=== PATIENT | female | born 1980 ===

== ENCOUNTER 2018-05-15 09:41 | Emergency (ER) | payer OTHER ==
[2018-05-15 09:46] VITALS: RESP 18
--- NOTE | 2018-05-15 12:05 | ED PDOC ---
History of Present Illness History of Present Illness: 38yo female, otherwise well, comes to ER reporting cough and congestion x 4 day. She reports associated chest pain due to the persistent coughing; patient reports diffuse bodyaches as well. Patient denies associated shortness of breath, abdominal pain, vomiting and diarrhea. Patient took Tylenol yesterday, with no relief of symptoms. PMD: None HPI: Influenza Time Seen by Provider: 05/15/18 10:02 Chief Complaint: Cough, Cold, Congestion Chief Complaint (Provider): Flu like symptoms History Per: Patient Exam Limitations: no limitations Onset/Duration Of Symptoms: Days (4) Symptoms include: bodyaches, cough, nasal congestion. denies: vomiting, diarrhea, chest pain Past Medical History Reviewed: Historical Data, Nursing Documentation, Vital Signs Vital Signs: Last Vital Signs Temp 98.3 F 05/15/18 09:44 Pulse 74 05/15/18 09:44 Resp 18 05/15/18 09:44 BP 132/90 05/15/18 09:44 Pulse Ox 100 05/15/18 09:44 - Medical History PMH: No Chronic Diseases - Surgical History Surgical History: No Surg Hx - Home Medications Home Medications: Ambulatory Orders Medication Instructions Recorded Benzonatate [Tessalon Perles] 100 mg PO BID PRN 5 Days sgl 05/15/18 Ibuprofen [Motrin] 600 mg PO TID 7 Days tab 05/15/18 - Allergies Allergies/Adverse Reactions: Allergies Allergy/AdvReac Type Severity Reaction Status Date / Time No Known Allergies Allergy Verified 05/15/18 10:05 Review of Systems ROS Statement: Except As Marked, All Systems Reviewed And Found Negative Constitutional: Positive for: Fever, Malaise Cardiovascular: Positive for: Chest Pain (s/p cough) Respiratory: Positive for: Cough. Negative for: Shortness of Breath Gastrointestinal: Negative for: Nausea, Vomiting, Abdominal Pain Physical Exam - Reviewed Nursing Documentation Reviewed: Yes Vital Signs Reviewed: Yes - Physical Exam Appears: Positive for: Non-toxic, No Acute Distress Head Exam: Positive for: ATRAUMATIC, NORMAL INSPECTION, NORMOCEPHALIC Skin: Positive for: Normal Color, Warm Eye Exam: Positive for: EOMI, PERRL ENT: Positive for: Nasal Congestion. Negative for: Pharyngeal Erythema, Tonsillar Exudate, Tonsillar Swelling Neck: Positive for: Normal, Painless ROM, Supple Cardiovascular/Chest: Positive for: Regular Rate, Rhythm. Negative for: Murmur, Tachycardia Respiratory: Positive for: Normal Breath Sounds. Negative for: Rales, Rhonchi, Wheezing Pulses-Radial (L): 2+ Pulses-Radial (R): 2+ Gastrointestinal/Abdominal: Positive for: Normal Exam, Soft. Negative for: Tenderness Back: Positive for: Normal Inspection. Negative for: L CVA Tenderness, R CVA Tenderness Extremity: Positive for: Normal ROM. Negative for: Pedal Edema Neurologic/Psych: Positive for: Alert, Oriented. Negative for: Motor/Sensory Deficits Medical Decision Making Medical Decision Making: Impression: Flu like illness Plan: -- Tessalon perles -- Motrin 600mg PO Scribe Attestation: Documented by Deisi Croft acting as a scribe for Elder Holloway MD Provider Attestation: All medical record entries made by the Scribe were at my direction and personally dictated by me. I have reviewed the chart and agree that the record accurately reflects my personal performance of the history, physical exam, medical decision making, and the department course for this patient. I have also personally directed, reviewed, and agree with the discharge instructions and disposition. - ECG O2 Sat by Pulse Oximetry: 100 Disposition - Clinical Impression Clinical Impression: URI (upper respiratory infection) - Disposition Referrals: [facility] [Outside] - 05/19/18 Condition: STABLE Additional Instructions: Return if not better in 3 days. Prescriptions: Benzonatate [Tessalon Perles] 100 mg PO BID PRN 5 Days sgl PRN Reason: Cough Ibuprofen [Motrin] 600 mg PO TID 7 Days tab Instructions: Viral Upper Respiratory Infection, Adult (DC) Forms: [facility] ED School/Work Excuse Print Language: ARABIC
[2018-05-15 12:30] VITALS: BP 113/77; PULSE 72; TEMP 97.8; O2SAT 98
== END 2018-05-15 12:45 | disposition home or self-care (01) ==
LOC: H.ER 09:41
DX: J06.9 Acute upper respiratory infection, unspecified (principal)